=== PATIENT | female | born 1960 | race Caucasian/White ===

== ENCOUNTER 2016-05-07 17:02 | Emergency (ER) | payer OTHER ==
[2016-05-07 17:20] VITALS: RESP 16
--- NOTE | 2016-05-07 17:48 | UCPHY ---
H & P Time Seen by Provider: 05/07/16 17:08 Patient Type: New HPI/ROS: 56-year-old female presents complaining of cough nasal congestion, fevers and chills that have been going on since Monday of this week approximately 4 days. She states she had a cold approximately 2 weeks ago and feels this may be a continuation of that she is concerned she might possibly have pneumonia and would like to be sure that she does not. Review of systems As per HPi-positive URI General positive fever positive chills no weakness HEENT no eye pain no eye discharge. No eye redness, no sore throat Respiratory positive cough, no shortness of breath Cardiac no chest pain, no peripheral edema GI no abdominal pain, no diarrhea, no constipation, no nausea, no vomiting no flank pain, no hematuria, no dysuria Musculoskeletal no myalgias, no joint pain Heme no easy bruising, no easy bleeding Endo no polyuria, no polydipsia Skin no rashes, no pruritus Neuro no syncope, no dizziness, no headaches Psych is no suicidal ideation, no homicidal ideation Past Medical/Surgical History: Hypothyroid Social History: Alcohol socially, cannabis positive, denies other drug use Smoking Status: Former smoker Physical Exam: 56-year-old female Alert and oriented nontoxic appearance, no acute distress afebrile Atraumatic normocephalic Extraocular muscles intact, anicteric Nares mild yellowish discharge Oropharynx mild erythema no tonsillar swelling no exudate no uvular deviation, tolerating own secretions Neck supple no lymphadenopathy Lungs clear to auscultation bilaterally Heart regular rate and rhythm Abdomen normoactive bowel sounds soft nontender Extremities no cyanosis clubbing or edema Skin no rash Constitutional: Initial Vital Signs Temperature (C) 37.3 C 05/07/16 17:18 Heart Rate 95 05/07/16 17:18 Respiratory Rate 16 05/07/16 17:18 Blood Pressure 134/93 H 05/07/16 17:18 O2 Sat (%) 98 05/07/16 17:18 O2 Delivery Mode Room Air Allergies/Adverse Reactions: amoxicillin [Amoxicillin] Allergy (Unknown, Verified 05/07/16 17:22) Unknown Home Medications: Medication Instructions Recorded AZITHROMYCIN [Z-PACK] 250 mg PO DAILY #6 tab 05/07/16 Acetaminophen with Codeine 1 each PO DAILY PRN #5 tablet 05/07/16 [Acetaminophen-Cod #4 Tablet] Benzonatate [Tessalon Pearles (RX)] 100 mg PO TID PRN #30 cap 05/07/16 Levothyroxine Sodium 05/07/16 Medical Decision Making ED Course/Re-evaluation: Patient seen and evaluated for cold symptoms cough, concern for possible pneumonia Influenza negative Chest x-ray Differential diagnosis considered Bronchitis, pneumonia, influenza, URI Impression Bronchitis Plan Z-Yash, Tessalon Perles, acetaminophen with codeine at bedtime Follow-up with PCP - Data Points Laboratory Results: 05/07/16 15:15 Influenza Typ A,B (DFA) NEGATIVE FOR FLU (NEGATIVE) Departure - Departure Disposition: Home, Routine, Self-Care Clinical Impression: Bronchitis Condition: Good Instructions: Acute Bronchitis (ED) Referrals: NONE *PRIMARY CARE P,. [Primary Care Provider] - As per Instructions Prescriptions: Acetaminophen with Codeine [Acetaminophen-Cod #4 Tablet] 1 each PO DAILY PRN #5 tablet PRN Reason: Cough, Severe AZITHROMYCIN [Z-PACK] 250 mg PO DAILY #6 tab Benzonatate [Tessalon Pearles (RX)] 100 mg PO TID PRN #30 cap PRN Reason: Cough, Moderate - PQRS PQRS Measurement: na
[2016-05-07 18:23] VITALS: BP 128/95; PULSE 99; TEMP 99; O2SAT 96
== END 2016-05-07 18:23 | disposition home or self-care (01) ==
LOC: CED 17:02
DX: J40 Bronchitis, not specified as acute or chronic (principal); E03.9 Hypothyroidism, unspecified; Z88.1 Allergy status to other antibiotic agents
CPT/HCPCS: 71020-PO; 87400-PO; 99203-PO; G0463-PO

== ENCOUNTER → 2017-02-13 | Outpatient (CLI) | payer OTHER | LOC: CIMAGING 08:54 | PROVIDERS: ATTEND Internal Medicine | DX: Z12.31 Encounter for screening mammogram for malignant neoplasm of breast (principal) | CPT/HCPCS: G0202 ==